=== PATIENT | female | born 1980 | race Caucasian/White ===

== ENCOUNTER 2017-03-26 20:32 | Emergency (ER) | payer OTHER ==
[~2017-03-26] VITALS: Ht 165.1 cm; Wt 90.9 kg
[2017-03-26] MEDS ORDERED: TIZA4CAP3 PO (20:45)
[2017-03-27] MEDS ORDERED: ISOVUE-370 76% 100ML VIAL (Q9967) As Ordered ONE (00:28)
[2017-03-27 00:54] LABS: ALBUMIN/GLOBULIN RATIO 1.08 (1.00-1.93); ALKALINE PHOSPHATASE 85 U/L (45-117); ALT/SGPT 30 U/L (12-78); AMYLASE 29 U/L (25-115); ANION GAP 3 MEQ/L (8-16); AST/SGOT 19 U/L (15-37); BASO # 0.1 K/mm3 (0.0-0.2); BASO % 0.7 % (0.0-1.0); BILIRUBIN,DIRECT < 0.1 MG/DL (0.0-0.2); BILIRUBIN,TOTAL 0.4 MG/DL (0.2-1.0); BLOOD UREA NITROGEN 8 MG/DL (7-18); CALCIUM LEVEL 9.2 MG/DL (8.5-10.1); CARBON DIOXIDE LEVEL 30 MEQ/L (21-32); CHLORIDE LEVEL 107 MEQ/L (98-107); CREATININE FOR GFR 0.93 MG/DL (0.55-1.02); EOS # 0.1 K/mm3 (0.0-0.50); EOS % 1.5 % (0.0-3.0); GLOMERULAR FILTRATION RATE > 60.0 (>60); GLUCOSE, FASTING 104 MG/DL (70-105); LARGE UNSTAINED CELL # 0.2 K/mm3 (0.0-0.4); LARGE UNSTAINED CELL % 2.1 % (0.0-4.0); LYMPH # 2.2 K/mm3 (1.5-4.5); LYMPH % 25.9 % (24.0-44.0); MEAN CORPUSCULAR HEMOGLOBIN 31.6 pg (27.0-33.0); MEAN CORPUSCULAR VOLUME 86.6 fl (80.0-96.0); MONO # 0.4 K/mm3 (0.0-0.8); MONO % 4.5 % (0.0-5.0); NEUTROPHILS # 5.5 K/mm3 (1.8-7.7); NEUTROPHILS % 65.4 % (36.0-66.0); PLATELET COUNT, AUTOMATED 214 k/mm3 (150-450); POTASSIUM SERUM 3.9 MEQ/L (3.5-5.1); RED CELL DISTRIBUTION WIDTH 13.1 % (11.5-14.5); SODIUM LEVEL 140 MEQ/L (136-145); TOTAL PROTEIN 7.7 GM/DL (6.4-8.2); WHITE BLOOD COUNT 8.4 K/mm3 (4.0-10.0)
[2017-03-27 00:56] LABS: MEAN CORPUSCULAR HGB CONC 35.8 g/dl (32.0-36.5)
[2017-03-27 01:03] LABS: CONTROL LINE HCG INT CTR LINE PRESENT
--- NOTE | 2017-03-27 02:10 | REPUSA ---
CLINICAL HISTORY: Abdominal pain. TECHNIQUE: Multiple axial, sagittal and coronal CT images were obtained through the abdomen and pelvi s after administration of intravenous contrast material. COMMENTS: The liver is mildly enlarged with decreased attenuation without mass or defect. There is no intra or extrahepatic biliary ductal dilatation. The spleen is mildly enlarged. The gallbladder is surgically absent. The pancreas is of normal contour and attenuation characteristics. There is no evidence of ad renal mass. Mild diffuse thickening of the proximal jejunal small bowel loops. Adjacent mildly prominent lymph no nancy with the largest measuring 1.2 cm. 2.8 cm well defined left ovarian cyst. Both kidneys demonstrate prompt and equal nephrograms. The kidneys are normal in size, shape and conf iguration. There is no evidence of renal or ureteral mass. No renal or ureteral calculi are identifie d. There is no hydroureter or hydronephrosis. No evidence for appendicitis. No evidence for small or large bowel obstruction. There is no evidence of abdominal ascites or lymphadenopathy. There is no evidence of intrinsic or extrinsic bladder mass. There is no pelvic ascites or lymphadeno erica. Images of the lung bases show no evidence of pleural or parenchymal mass. There are no pleural effusi ons. The bony structures are free of lytic or blastic lesions. IMPRESSION: Mildly thickened jejunal small bowel loops. Underdistention versus mild enteritis. Adjacent mildly prominent lymph nodes. Nonspecific, reactive to mild enteritis versus mild mesenteric adenitis. Mild hepatomegaly with fatty liver infiltration. Mild splenomegaly. Prior cholecystectomy. Left ovarian cyst. Thank you for your kind referral of this patient.
[2017-03-27] MEDS ORDERED: MORPHINE 4 MG/ML 1ML SYRINGE IV ONE ×2 (02:30)
[2017-03-27 02:50] VITALS: BP 145/78
--- NOTE | 2017-03-27 08:00 | ED PDOC ---
Post-Departure Follow-Up radiology report faxed to [facility] Rachel Graham MD Mar 27, 2017 08:00
== END 2017-03-27 02:55 | disposition home or self-care (01) ==
LOC: M ED 20:32
DX: K52.9 Noninfective gastroenteritis and colitis, unspecified (principal); I88.0 Nonspecific mesenteric lymphadenitis
CPT/HCPCS: 74177; 80048; 80076; 81001; 82150; 83690; 84703; 85025; 87088; 87186; 96374; 96376; 99283; Q9967

== ENCOUNTER 2017-07-29 14:48 | Emergency (ER) | payer OTHER ==
[2017-07-29] MEDS: ADACEL/BOOSTRIX VACCINE (DIPHTH/PERTUSS/ACELL/TETANUS)0.5ML SYR (90715) IM (17:04)
[2017-07-29] MEDS: DERMABOND TOPICAL SKIN ADHESIVE TOP (17:11)
[2017-07-29] MEDS: CIPROFLOXACIN 500 MG TAB PO (17:40)
== END 2017-07-29 17:30 | disposition home or self-care (01) ==
LOC: M ED 14:48
DX: S01.331A Puncture wound without foreign body of right ear, initial encounter (principal); W61.99XA Other contact with other birds, initial encounter; Y92.89 Other specified places as the place of occurrence of the external cause; N80.9 Endometriosis, unspecified; Z79.51 Long term (current) use of inhaled steroids; Z88.0 Allergy status to penicillin; Z88.1 Allergy status to other antibiotic agents
CPT/HCPCS: 90715

== ENCOUNTER → 2017-08-30 | Outpatient (CLI) | payer OTHER | LOC: M LRY 14:42 | DX: S99.912A Unspecified injury of left ankle, initial encounter (principal); X58.XXXA Exposure to other specified factors, initial encounter; Y93.9 Activity, unspecified | CPT/HCPCS: 73610; G0463 ==